=== PATIENT | female | born 1975 | race Two or more races ===

== ENCOUNTER 2018-01-23 14:32 | Inpatient (IN) | payer MEDICAID ==
[~2018-01-23] VITALS: Ht 121.9 cm; Wt 75.1 kg
[2018-01-23 15:39] LABS: Basophils # (auto) 0 uL; Eosinophils # (auto) 0.1 uL; Eosinophils % (auto) 2.1 % (0.0-7.0); Lymphocytes # (auto) 2.3 uL; Neutrophils # (auto) 3.4 uL
[2018-01-23 15:41] LABS: Basophils % (auto) 0.6 % (0.0-2.0); Hemoglobin 14.4 g/dL (12.2-16.2); Lymphocytes % (auto) 36.1 % (10.0-50.0); Mean Corpuscular Hemoglobin 36.6 pg (28.0-32.0); Mean Corpuscular Hgb Conc. 34.3 g/dL (32.0-36.0); Mean Corpuscular Volume 106.7 fL (80.0-100.0); Monocytes # (auto) 0.5 uL; Neutrophils % (auto) 53.2 % (37.0-80.0); Nucleated Red Blood Cells % 0.2 %; Platelet Count (auto) 212 10^3/uL (140-450); Red Blood Cells 3.93 10^6/uL (4.0-5.20); Red Cell Distribution Width 13.7 % (11.8-14.3); White Blood Cell 6.4 10^3/uL (4.4-10.8)
[2018-01-23 15:54] LABS: Alanine Aminotransferase 17 U/L (13-56); Albumin 3.6 g/dL (3.4-5.0); Alkaline Phosphatase 85 U/L (45-117); Anion Gap 8 (5-15); Aspartate Aminotransferase 15 U/L (15-37); BUN/Creatinine Ratio 11.3; Bilirubin, Total 0.4 mg/dL (0.2-1.0); Blood Urea Nitrogen 12 mg/dL (7-18); Calcium 8.5 mg/dL (8.5-10.1); Carbon Dioxide 24 mmol/L (21-32); Chloride 105 mmol/L (98-107); GFR African American 73 mL/min; GFR Non-African American 61 mL/min; Glucose 100 mg/dL (74-106); Potassium 3.6 mmol/L (3.5-5.1); Sodium 137 mmol/L (136-145); Total Protein 7.6 g/dL (6.4-8.2)
[2018-01-23] MEDS ORDERED: ASPirin 81 mg TAB PO ONE (20:30)
[2018-01-23] MEDS ORDERED: HYDROcodone-ACET 10/325MG TAB PO ONE (20:30)
[2018-01-23] MEDS ORDERED: ASPirin 81 mg TAB ONE (20:31)
[2018-01-24] MEDS ORDERED: SODIUM CHLORIDE 0.9% 1,000 ML IV ONE (00:15)
[2018-01-24] MEDS ORDERED: MORPHINE SULFATE 8mg/ml INJ SDV IV ONE (00:15)
[2018-01-24] MEDS ORDERED: ONDANSETRON HCL 4 MG/2 ML VIAL IV ONE (00:15)
[2018-01-24] MEDS ORDERED: ACETAMINOPHEN 500 MG TAB PO PRN (03:15)
[2018-01-24] MEDS ORDERED: ONDANSETRON HCL 4 MG/2 ML VIAL IV PRN (03:15)
[2018-01-24] MEDS ORDERED: NITROGLYCERIN 0.4 MG SL TAB SL PRN (03:15)
[2018-01-24] MEDS ORDERED: MORPHINE SULFATE 8mg/ml INJ SDV IV PRN ×2 (03:15)
[2018-01-24] MEDS ORDERED: SODIUM CHLORIDE 0.9% 1,000 ML IV SCH (04:15)
[2018-01-24] MEDS ORDERED: LORA-622 PO (05:12)
[2018-01-24] MEDS ORDERED: POTA10TA51 PO (05:12)
[2018-01-24] MEDS ORDERED: AZITHROMYCIN 250 MG TAB PO ONE (05:27)
[2018-01-24 06:39] VITALS: BP 112/80
[2018-01-24] MEDS ORDERED: IBUP800T24 PO (07:01)
[2018-01-24] MEDS ORDERED: HYDR500C PO (07:01)
[2018-01-24] MEDS ORDERED: FERR-20 PO (07:37)
[2018-01-24 09:05] VITALS: BP 120/70
[2018-01-24] MEDS: FERROUS SULFATE 325 MG TAB PO SCH (09:35)
[2018-01-24] MEDS: PANTOPRAZOLE 40 MG TAB PO SCH (09:36)
[2018-01-24] MEDS ORDERED: HYDROXYUREA 500 MG CAP PO SCH (10:00)
[2018-01-24 11:01] LABS: Urine Bacteria NONE SEEN /hpf (None Seen); Urine Blood Negative /uL (Negative); Urine WBC 1 /hpf (0 - 5)
[2018-01-24] MEDS: HYDROcodone-ACET 5/325MG TAB PO PRN ×2 (11:02→19:37)
[2018-01-24 11:24] LABS: Basophils # (auto) 0 uL; Eosinophils # (auto) 0.1 uL; Hemoglobin 13.1 g/dL (12.2-16.2); Lymphocytes # (auto) 1.9 uL; Monocytes # (auto) 0.4 uL; White Blood Cell 4.4 10^3/uL (4.4-10.8)
[2018-01-24 11:25] LABS: Basophils % (auto) 0.5 % (0.0-2.0); Eosinophils % (auto) 2.1 % (0.0-7.0); Hematocrit 38.3 % (36.0-46.0); Lymphocytes % (auto) 42.7 % (10.0-50.0); Mean Corpuscular Hemoglobin 36.2 pg (28.0-32.0); Mean Corpuscular Hgb Conc. 34.2 g/dL (32.0-36.0); Mean Corpuscular Volume 105.9 fL (80.0-100.0); Neutrophils % (auto) 44.7 % (37.0-80.0); Nucleated Red Blood Cells % 0.1 %; Platelet Count (auto) 166 10^3/uL (140-450); Red Blood Cells 3.62 10^6/uL (4.0-5.20); Red Cell Distribution Width 13.7 % (11.8-14.3)
[2018-01-24 11:37] LABS: BUN/Creatinine Ratio 11.1; Calcium 8.2 mg/dL (8.5-10.1); Potassium 4.1 mmol/L (3.5-5.1)
[2018-01-24 13:20] VITALS: BP 117/58
[2018-01-24] MEDS: SODIUM CHLORIDE 0.9% 1,000 ML IV SCH (13:30)
[2018-01-24 16:28] VITALS: BP 124/67
[2018-01-24 23:43] VITALS: BP 105/58
[2018-01-25 01:38] LABS: Alcohol, Urine < 3.0 mg/dL (0-5); Amphetamine Screen, Urine NEGATIVE (NEGATIVE); Barbiturate Scree,Urine NEGATIVE (NEGATIVE); Benzodiazephine Screen, Urine NEGATIVE (NEGATIVE); Cannabinoid Screen, Urine NEGATIVE (NEGATIVE); Cocaine Screen, Urine NEGATIVE (NEGATIVE); Opiate Scree,Urine NEGATIVE (NEGATIVE); Phencyclidine Screen, Urine NEGATIVE (NEGATIVE)
[2018-01-25] MEDS: HYDROcodone-ACET 5/325MG TAB PO PRN ×3 (04:41→13:50)
[2018-01-25 05:06] VITALS: BP 102/61
[2018-01-25] MEDS: HYDROXYUREA 500 MG CAP PO SCH ×2 (05:34→13:50)
[2018-01-25] MEDS: SODIUM CHLORIDE 0.9% 1,000 ML IV SCH (05:34)
[2018-01-25 07:16] LABS: Basophils # (auto) 0 uL; Basophils % (auto) 0.3 % (0.0-2.0); Eosinophils # (auto) 0.1 uL; Hematocrit 37.5 % (36.0-46.0); Hemoglobin 12.8 g/dL (12.2-16.2); Monocytes # (auto) 0.3 uL; Neutrophils # (auto) 1.7 uL; Nucleated Red Blood Cells % 0.3 %; White Blood Cell 3.8 10^3/uL (4.4-10.8)
[2018-01-25 07:18] LABS: Magnesium 2.2 mg/dL (1.6-2.6)
[2018-01-25 07:19] LABS: Eosinophils % (auto) 3.4 % (0.0-7.0); Lymphocytes # (auto) 1.7 uL; Lymphocytes % (auto) 44.5 % (10.0-50.0); Mean Corpuscular Hemoglobin 36.5 pg (28.0-32.0); Mean Corpuscular Volume 107.2 fL (80.0-100.0); Monocytes % (auto) 8.4 % (0.0-12.0); Neutrophils % (auto) 43.4 % (37.0-80.0); Platelet Count (auto) 144 10^3/uL (140-450); Red Cell Distribution Width 13.8 % (11.8-14.3)
[2018-01-25 08:00] VITALS: BP 131/54
[2018-01-25 08:32] VITALS: BP 131/59
[2018-01-25] MEDS: FERROUS SULFATE 325 MG TAB PO SCH (09:34)
[2018-01-25] MEDS: PANTOPRAZOLE 40 MG TAB PO SCH (09:35)
[2018-01-25] MEDS ORDERED: FOLIC ACID 1 MG TAB PO SCH (10:00)
[2018-01-25] MEDS ORDERED: FOLI1TAB6 PO (11:13)
[2018-01-25 11:31] VITALS: BP 118/64
[2018-01-28 09:18] LABS: Folate (Folic Acid) 8.56 ng/mL (5.38-24)
== END 2018-01-25 17:10 | disposition home or self-care (01) | DRG 469 ==
LOC: ER 14:32 → TELE 14:33 → TELE-CENTR 01-24 06:03 → CENTRAL 01-24 16:18
PROVIDERS: ADMIT Nurse Practitioner Family; ATTEND Internal Medicine
DX: N17.0 Acute kidney failure with tubular necrosis (principal); D57.00 Hb-SS disease with crisis, unspecified; F41.9 Anxiety disorder, unspecified; D57.3 Sickle-cell trait; F12.90 Cannabis use, unspecified, uncomplicated; E66.01 Morbid (severe) obesity due to excess calories; Z82.49 Family history of ischemic heart disease and other diseases of the circulatory system; Z83.3 Family history of diabetes mellitus; R10.9 Unspecified abdominal pain; E66.9 Obesity, unspecified; Z68.43 Body mass index [BMI] 50.0-59.9, adult
CPT/HCPCS: 36415; 71046; 80048; 80053; 80061; 80307; 81001; 82728; 82746; 83540; 83550; 83735; 84484; 85025; 85045; 93005; 96361; 96374; 96375; 96376; J2270; J2405

== ENCOUNTER 2018-08-09 16:11 | Emergency (ER) | payer MEDICAID ==
[~2018-08-09] VITALS: Ht 149.9 cm; Wt 74.4 kg
[~2018-08-09 16:11] MED LIST: FERR-20 PO; FOLI1TAB6 PO; HYDR500C PO; IBUP800T24 PO; LORA-622 PO; POTA10TA51 PO
[2018-08-09] MEDS ORDERED: SODIUM CHLORIDE 0.9% 1,000 ML IV ONE (17:29)
[2018-08-09] MEDS ORDERED: HYDROcodone-ACET 10/325MG TAB PO ONE (17:30)
[2018-08-09] MEDS ORDERED: ASPirin 81 mg TAB PO ONE (17:30)
[2018-08-09 17:49] LABS: Basophils # (auto) 0 uL; Eosinophils # (auto) 0.1 uL; Mean Corpuscular Hemoglobin 35.5 pg (28.0-32.0); Mean Corpuscular Hgb Conc. 33.6 g/dL (32.0-36.0); Monocytes # (auto) 0.5 uL
[2018-08-09 17:53] LABS: Basophils % (auto) 0.3 % (0.0-2.0); Eosinophils % (auto) 1.8 % (0.0-7.0); Hematocrit 42.6 % (36.0-46.0); Hemoglobin 14.3 g/dL (12.2-16.2); Lymphocytes # (auto) 1.6 uL; Lymphocytes % (auto) 36.3 % (10.0-50.0); Mean Corpuscular Volume 105.7 fL (80.0-100.0); Monocytes % (auto) 11.9 % (0.0-12.0); Neutrophils # (auto) 2.1 uL; Neutrophils % (auto) 49.7 % (37.0-80.0); Nucleated Red Blood Cells % 0.1 %; Platelet Count (auto) 155 10^3/uL (140-450); Red Blood Cells 4.03 10^6/uL (4.0-5.20); Red Cell Distribution Width 14.5 % (11.8-14.3); White Blood Cell 4.3 10^3/uL (4.4-10.8)
[2018-08-09 17:55] LABS: Alanine Aminotransferase 22 U/L (13-56); Albumin 3.8 g/dL (3.4-5.0); Anion Gap 7 (5-15); Blood Urea Nitrogen 11 mg/dL (7-18); Calcium 8.9 mg/dL (8.5-10.1); Carbon Dioxide 23 mmol/L (21-32); Chloride 106 mmol/L (98-107); Glucose 97 mg/dL (74-106); Potassium 3.7 mmol/L (3.5-5.1); Sodium 136 mmol/L (136-145)
[2018-08-09 18:00] LABS: Alkaline Phosphatase 79 U/L (45-117); Aspartate Aminotransferase 23 U/L (15-37); BUN/Creatinine Ratio 11.6; Bilirubin, Total 0.4 mg/dL (0.2-1.0); GFR African American 83 mL/min; GFR Non-African American 69 mL/min; Total Protein 7.8 g/dL (6.4-8.2)
[2018-08-09 18:48] VITALS: BP 115/87
== END 2018-08-09 18:52 | disposition home or self-care (01) ==
LOC: ER 16:15
DX: R07.89 Other chest pain (principal)
CPT/HCPCS: 36415; 71046; 80053; 84484; 85025; 93005

== ENCOUNTER 2018-10-01 12:37 | Emergency (ER) | payer MEDICAID ==
[~2018-10-01] VITALS: Ht 147.3 cm; Wt 77.1 kg
[2018-10-01] MEDS ORDERED: SODIUM CHLORIDE 0.9% 1,000 ML IV ONE ×2 (13:00)
[2018-10-01 13:27] LABS: Basophils # (auto) 0 uL; Eosinophils # (auto) 0.1 uL; Hemoglobin 13.9 g/dL (12.2-16.2); Monocytes # (auto) 0.4 uL; Neutrophils # (auto) 2.8 uL; Nucleated Red Blood Cells % 0.1 %
[2018-10-01 13:30] LABS: Basophils % (auto) 0.6 % (0.0-2.0); Eosinophils % (auto) 1.3 % (0.0-7.0); Hematocrit 40.7 % (36.0-46.0); Lymphocytes # (auto) 1.6 uL; Lymphocytes % (auto) 33.7 % (10.0-50.0); Mean Corpuscular Hemoglobin 34.8 pg (28.0-32.0); Mean Corpuscular Volume 102.3 fL (80.0-100.0); Monocytes % (auto) 7.4 % (0.0-12.0); Platelet Count (auto) 172 10^3/uL (140-450); Red Blood Cells 3.98 10^6/uL (4.0-5.20); Red Cell Distribution Width 13.5 % (11.8-14.3); White Blood Cell 4.9 10^3/uL (4.4-10.8)
[2018-10-01 13:45] LABS: Alanine Aminotransferase 21 U/L (13-56); Albumin 3.6 g/dL (3.4-5.0); Anion Gap 6 (5-15); Aspartate Aminotransferase 16 U/L (15-37); BUN/Creatinine Ratio 15.7; Blood Urea Nitrogen 13 mg/dL (7-18); Calcium 8.9 mg/dL (8.5-10.1); Carbon Dioxide 24 mmol/L (21-32); Chloride 105 mmol/L (98-107); GFR African American 97 mL/min; GFR Non-African American 81 mL/min; Glucose 95 mg/dL (74-106); Potassium 4.2 mmol/L (3.5-5.1); Sodium 135 mmol/L (136-145)
[2018-10-01 13:51] LABS: Alkaline Phosphatase 78 U/L (45-117); Bilirubin, Total 0.2 mg/dL (0.2-1.0); Total Protein 7.6 g/dL (6.4-8.2)
[2018-10-01 15:53] LABS: Urine Bacteria NONE SEEN /hpf (None Seen); Urine Blood Negative /uL (Negative); Urine Specific Gravity 1.017 (1.001-1.035); Urine WBC 3 /hpf (0 - 5)
[2018-10-01] MEDS ORDERED: HYDROcodone-ACET 10/325MG TAB PO ONE (17:00)
[2018-10-01 17:15] VITALS: BP 120/80
== END 2018-10-01 17:50 | disposition home or self-care (01) ==
LOC: ER 12:42
DX: N39.0 Urinary tract infection, site not specified (principal); R07.89 Other chest pain; R55 Syncope and collapse; R51 Headache
CPT/HCPCS: 36415; 70450; 71046; 80053; 81001; 81025; 84484; 85025; 93005; 99284; J7030

== ENCOUNTER 2019-04-16 12:50 | Emergency (ER) | payer MEDICAID ==
[~2019-04-16] VITALS: Ht 147.3 cm; Wt 78.1 kg
[2019-04-16 13:02] VITALS: BP 130/51
[2019-04-16] MEDS ORDERED: SODIUM CHLORIDE 0.9% 1,000 ML IV ONE (13:30)
[2019-04-16] MEDS ORDERED: KETOROLAC TROMETH 15 mg/ml 1ML VL IV ONE (13:30)
[2019-04-16 13:50] LABS: Basophils # (auto) 0 uL; Eosinophils # (auto) 0.1 uL; Mean Corpuscular Hgb Conc. 34.2 g/dL (32.0-36.0); Mean Corpuscular Volume 104.2 fL (80.0-100.0); Monocytes # (auto) 0.5 uL; Neutrophils # (auto) 2.3 uL
[2019-04-16 13:52] LABS: Basophils % (auto) 0.5 % (0.0-2.0); Eosinophils % (auto) 1.1 % (0.0-7.0); Hematocrit 39.9 % (36.0-46.0); Hemoglobin 13.7 g/dL (12.2-16.2); Lymphocytes % (auto) 40.5 % (10.0-50.0); Mean Corpuscular Hemoglobin 35.6 pg (28.0-32.0); Monocytes % (auto) 9.8 % (0.0-12.0); Neutrophils % (auto) 48.1 % (37.0-80.0); Platelet Count (auto) 178 10^3/uL (140-450); Red Blood Cells 3.83 10^6/uL (4.0-5.20); Red Cell Distribution Width 13.8 % (11.8-14.3); White Blood Cell 4.8 10^3/uL (4.4-10.8)
[2019-04-16 14:08] LABS: Albumin 3.6 g/dL (3.4-5.0); Calcium 8.3 mg/dL (8.5-10.1)
[2019-04-16 14:11] LABS: Bilirubin, Total 0.3 mg/dL (0.2-1.0); Total Protein 7.8 g/dL (6.4-8.2)
[2019-04-16 14:49] LABS: Urine Bacteria NONE SEEN /hpf (None Seen); Urine Blood Negative /uL (Negative); Urine Mucus FEW (None Seen); Urine Specific Gravity 1.024 (1.001-1.035); Urine WBC 15 /hpf (0 - 5)
[2019-04-16] MEDS ORDERED: cefTRIAXone 1GM/50ML D5W 50 ML IV ONE (15:15)
== END 2019-04-16 16:31 | disposition home or self-care (01) ==
LOC: ER 12:56
DX: M23.92 Unspecified internal derangement of left knee (principal); M23.91 Unspecified internal derangement of right knee; N39.0 Urinary tract infection, site not specified; Z79.899 Other long term (current) drug therapy
CPT/HCPCS: 36415; 80053; 81001; 81025; 85025; 85045; 96365; 96375; 99283; J0696; J1885; J7030

== ENCOUNTER 2019-06-12 22:06 | Emergency (ER) | payer MEDICAID ==
[~2019-06-12] VITALS: Ht 147.3 cm; Wt 78.9 kg
[2019-06-12 23:21] LABS: Eosinophils # (auto) 0.1 uL; Eosinophils % (auto) 1.7 % (0.0-7.0); Neutrophils # (auto) 2.9 uL; White Blood Cell 5.3 10^3/uL (4.4-10.8)
[2019-06-12 23:24] LABS: Basophils # (auto) 0.1 uL; Hematocrit 38.5 % (36.0-46.0); Hemoglobin 13.1 g/dL (12.2-16.2); Lymphocytes # (auto) 1.9 uL; Lymphocytes % (auto) 35.9 % (10.0-50.0); Mean Corpuscular Hemoglobin 34.7 pg (28.0-32.0); Monocytes # (auto) 0.4 uL; Monocytes % (auto) 7.9 % (0.0-12.0); Neutrophils % (auto) 53.5 % (37.0-80.0); Nucleated Red Blood Cells % 0.2 %; Platelet Count (auto) 169 10^3/uL (140-450); Red Blood Cells 3.77 10^6/uL (4.0-5.20); Red Cell Distribution Width 13.7 % (11.8-14.3)
[2019-06-12 23:36] LABS: Albumin 3.9 g/dL (3.4-5.0); Calcium 8.7 mg/dL (8.5-10.1); Potassium 3.7 mmol/L (3.5-5.1)
[2019-06-12 23:38] LABS: BUN/Creatinine Ratio 16.7
[2019-06-12 23:41] LABS: Bilirubin, Total 0.2 mg/dL (0.2-1.0); Total Protein 7.4 g/dL (6.4-8.2)
[2019-06-13 00:59] LABS: Urine Bacteria NONE SEEN /hpf (None Seen); Urine Blood TRACE /uL (Negative); Urine Mucus FEW (None Seen); Urine WBC 3 /hpf (0 - 5)
[2019-06-13] MEDS ORDERED: MORPHINE SULFATE 10 MG/ML INJ 1ML SDV IM ONE (01:15)
[2019-06-13 04:48] VITALS: BP 108/64
== END 2019-06-13 04:42 | disposition home or self-care (01) ==
LOC: ER 22:07
DX: S16.1XXA Strain of muscle, fascia and tendon at neck level, initial encounter (principal); M47.892 Other spondylosis, cervical region; M62.838 Other muscle spasm; Z79.899 Other long term (current) drug therapy; X58.XXXA Exposure to other specified factors, initial encounter; Y93.89 Activity, other specified; Y99.8 Other external cause status; Y92.89 Other specified places as the place of occurrence of the external cause
CPT/HCPCS: 36415; 72125; 80053; 81001; 83735; 85025; 99284; J2270

== ENCOUNTER 2019-08-09 12:30 | Emergency (ER) | payer MEDICAID ==
[~2019-08-09] VITALS: Ht 147.3 cm; Wt 78.5 kg
[2019-08-09 12:42] VITALS: BP 125/70
[2019-08-09] MEDS ORDERED: IBUPROFEN 800 MG TAB PO ONE (14:15)
== END 2019-08-09 14:38 | disposition home or self-care (01) ==
LOC: ER 12:30
DX: M54.12 Radiculopathy, cervical region (principal); D25.9 Leiomyoma of uterus, unspecified; Z87.39 Personal history of other diseases of the musculoskeletal system and connective tissue; Z79.1 Long term (current) use of non-steroidal anti-inflammatories (NSAID); Z79.899 Other long term (current) drug therapy
CPT/HCPCS: 74018; 81002; 81025

== ENCOUNTER 2019-08-15 07:13 | Emergency (ER) | payer MEDICAID ==
[~2019-08-15] VITALS: Ht 147.3 cm; Wt 73.9 kg
[2019-08-15 07:42] VITALS: BP 124/79
[2019-08-15] MEDS ORDERED: HYDROcodone-ACET 7.5/325MG TAB PO ONE (07:45)
== END 2019-08-15 08:26 | disposition home or self-care (01) ==
LOC: ER 07:13
DX: G89.29 Other chronic pain (principal); M25.561 Pain in right knee